=== PATIENT | male | born 1985 | race Caucasian/White ===

== ENCOUNTER → 2019-07-09 | Outpatient (CLI) | payer BC ==
[~2019-07-09] MED LIST: CATHETER FLUSH 10 ML SYR IV PRN; HOLD METFORMIN - RECEIVED CONTRAST 20 ML VIAL IV SCH; HYDR1TAB PO; IOHEXOL 350 MG/ML 100 ML (OMNIPAQUE 350) VIAL IV ONE; NS 100 ML (IVPB) BAG IV ONE
--- NOTE | 2019-07-09 19:15 | Diagnostic Imaging Report ---
PROCEDURE: CT abdomen and pelvis with contrast. TECHNIQUE: Multiple contiguous axial images were obtained through the abdomen and pelvis after administration of intravenous contrast. Auto Exposure Controls were utilized during the CT exam to meet ALARA standards for radiation dose reduction. INDICATION: Right lower quadrant pain with nausea and constipation x2 days. FINDINGS: There are a few mildly dilated loops of small bowel in the right lower quadrant with air-fluid levels. The distal ileum is not dilated. The proximal small bowel and stomach are not distended. The colon is moderately distended with gas and stool throughout without evidence of obstruction. The appendix is normal. No evidence of diverticulitis. There is no free air or free fluid. No intra-abdominal adenopathy of pathologic size. No pelvic masses. Lung bases are clear. The liver appears normal. Gallbladder and bile ducts are normal. The pancreas and spleen are normal. The adrenal glands and kidneys appear normal. There is normal enhancement of the abdominal organs and vessels. IMPRESSION: 1. There are a few mildly dilated loops of small bowel in the right lower quadrant. This could be from enteritis however in this age group one would consider inflammatory bowel changes developing such as Crohn's. 2. No evidence of appendicitis or diverticulitis. Report given to Yadira Escobar APRN at 7:20 p.m. 07/09/2019 Dictated by: Dictated on workstation # [id number]
== END ==
LOC: RAD 16:55
PROVIDERS: ATTEND Nurse Practitioner Family
DX: K59.09 Other constipation (principal); R10.31 Right lower quadrant pain
CPT/HCPCS: 74177